=== PATIENT | male | born 1985 | race Caucasian/White ===

== ENCOUNTER 2021-02-09 16:47 | Outpatient (CLI) | payer OTHER | END 2021-02-09 16:48 | disposition home or self-care (01) | LOC: COV 16:47 | PROVIDERS: ATTEND Family Medicine | DX: R05 Cough (principal); R07.0 Pain in throat; R09.81 Nasal congestion; J34.89 Other specified disorders of nose and nasal sinuses; Z20.822 Contact with and (suspected) exposure to COVID-19 ==

== ENCOUNTER 2023-08-23 07:00 | Outpatient (CLI) | payer OTHER ==
[2023-08-23 20:49] LABS: CHLAMYDIA TRACHOMATIS DNA NEGATIVE (NEGATIVE); NEISSERIA GONORRHOEAE DNA NEGATIVE (NEGATIVE); TRICHOMONAS VAGINALIS DNA NEGATIVE (NEGATIVE)
== END 2023-08-23 23:59 | disposition home or self-care (01) ==
LOC: LAB.S 07:00
PROVIDERS: ATTEND Physician Assistant Medical
DX: Z11.3 Encounter for screening for infections with a predominantly sexual mode of transmission (principal)
CPT/HCPCS: 87491; 87591; 87661

== ENCOUNTER 2023-08-23 13:19 | Outpatient (CLI) | payer OTHER | END 2023-08-23 13:20 | disposition home or self-care (01) | LOC: LAB.S 13:19 | PROVIDERS: ATTEND Physician Assistant Medical | DX: Z11.3 Encounter for screening for infections with a predominantly sexual mode of transmission (principal) | CPT/HCPCS: 36415; 86317; 86592; 86803; 87340; 87389 ==